=== PATIENT | male | born 1955 | race African-American/Black ===

== ENCOUNTER 2017-04-08 08:00 | Day surgery (SDC) | payer BC ==
--- NOTE | ~2017-04-08 | EGD ---
EGD REPORT [facility] [address] [place] [place] [address] NAME: VOLODYMYR MARTINEZ : [birth year] STATUS : REG [facility]C PAT#: [id number] AGE: 61 ADM/REG DATE : 04/08/17 MR#: [id number] REPORT SERV DATE: 04/08/17 DICTATED BY: IRVING REYES DATE: 04/08/17 REPORT STATUS : Draft [facility]ANS[facility]IBED BY: [facility] DATE: 04/08/17 Endoscopy Center Patient Name: Volodymyr Martinez Date of : 1955 Attending MD: NOEL REYES MD Procedure Date No Time: 04/08/2017 Procedure: Upper GI endoscopy Indications: Epigastric abdominal pain, Abdominal bloating, Has a lap band and fluid has been aspirated howe to epigastric pain Referring MD: MARIANNA GRULLON Medicines: See the Anesthesia note for documentation of the administered medications Complications: No immediate complications. Estimated blood loss: None. Procedure: Pre-Anesthesia Assessment: - ASA Grade Assessment: III - A patient with severe systemic disease. - Prior to the procedure, a History and Physical was performed, and patient medications and allergies were reviewed. The patient's tolerance of previous anesthesia was also reviewed. The risks and benefits of the procedure and the sedation options and risks were discussed with the patient. All questions were answered, and informed consent was obtained. Prior Anticoagulants: The patient has taken aspirin and Plavix (clopidogrel), last doses were 1 day prior to procedure. After reviewing the risks and benefits, the patient was deemed in satisfactory condition to undergo the procedure. After obtaining informed consent, the endoscope was passed under direct vision. Throughout the procedure, the patient's blood pressure, pulse, and oxygen saturations were monitored continuously. The GIF [id number] [id number] was introduced through the mouth, and advanced to the second part of duodenum. The upper GI endoscopy was accomplished without difficulty. The patient tolerated the procedure well. Findings: The examined duodenum was normal. The entire examined stomach was normal. Biopsies were taken with a cold forceps for histology. Lap band, site appears healthy The examined esophagus was normal. Impression: - Normal examined duodenum. - Normal stomach. Biopsied. EGD REPORT [address] [address] NAME: VOLODYMYR MARTINEZ : [birth year] STATUS : REG [facility] [place] PAT#: [id number] AGE: 61 ADM/REG DATE : 04/08/17 MR#: [id number] REPORT SERV DATE: 04/08/17 DICTATED BY: IRVING REYES DATE: 04/08/17 REPORT STATUS : Draft TRANSCRIBED BY: [employer] DATE: 04/08/17 - Lap band, site appears healthy - Normal esophagus. Recommendation: - Patient has a contact number available for emergencies. The signs and symptoms of potential delayed complications were discussed with the patient. Return to normal activities tomorrow. Written discharge instructions were provided to the patient. - Regular diet. - Discharge patient to home. - Continue present medications. - Await pathology results. - Discharge patient to home. Procedure Code(s): --- Professional --- 68546, Esophagogastroduodenoscopy, flexible, transoral; with biopsy, single or multiple Diagnosis Code(s): --- Professional --- R10.13, Epigastric pain R14.0, Abdominal distension (gaseous) CPT copyright 2013 [employer]. All rights reserved. The codes documented in this report are preliminary and upon welder tack review may be revised to meet current compliance requirements. NOEL REYES MD 04/08/2017 9:03 AM This report has been signed electronically. Number of Addenda: 0 Note Initiated On: 04/08/2017 8:44 AM Scope Withdrawal Time 0 hours 0 minutes 0 seconds [id number] [id number]
--- NOTE | ~2017-04-08 | EGD ---
EGD REPORT [facility] [address] [place] [place] [address] NAME: VOLODYMYR MARTINEZ : [birth year] STATUS : REG [facility]C PAT#: [id number] AGE: 61 ADM/REG DATE : 04/08/17 MR#: [id number] REPORT SERV DATE: 04/08/17 DICTATED BY: IRVING REYES DATE: 04/08/17 REPORT STATUS : Draft TRANSCRIBED BY: [facility] DATE: 04/08/17 Endoscopy Center Patient Name: Volodymyr Martinez Date of : 1955 Attending MD: NOEL REYES MD Procedure Date No Time: 04/08/2017 Procedure: Colonoscopy Indications: Screening for colorectal malignant neoplasm Referring MD: MARIANNA GRULLON Medicines: See the Anesthesia note for documentation of the administered medications Complications: No immediate complications. Estimated blood loss: None. Procedure: Pre-Anesthesia Assessment: - ASA Grade Assessment: III - A patient with severe systemic disease. - Prior to the procedure, a History and Physical was performed, and patient medications and allergies were reviewed. The patient's tolerance of previous anesthesia was also reviewed. The risks and benefits of the procedure and the sedation options and risks were discussed with the patient. All questions were answered, and informed consent was obtained. Prior Anticoagulants: The patient has taken aspirin and Plavix (clopidogrel), last doses were 1 day prior to procedure. After reviewing the risks and benefits, the patient was deemed in satisfactory condition to undergo the procedure. After I obtained informed consent, the scope was passed under direct vision. Throughout the procedure, the patient's blood pressure, pulse, and oxygen saturations were monitored continuously. The PCF [id number] was introduced through the anus and advanced to the cecum, identified by appendiceal orifice and ileocecal valve. The ileocecal valve, appendiceal orifice and rectum were photographed. The entire colon was examined. The colonoscopy was performed without difficulty. The patient tolerated the procedure well. The quality of the bowel preparation was adequate. Findings: The perianal and digital rectal examinations were normal. A sessile polyp was found in the distal descending colon. The polyp was diminutive in size. The polyp was removed with a cold biopsy forceps. Resection and retrieval were complete. Non-bleeding internal hemorrhoids were found during retroflexion and were Grade I (internal hemorrhoids that do not prolapse). EGD REPORT [place] [id number] [facility] [place]. [address] NAME: VOLODYMYR MARTINEZ : [birth year] STATUS : REG [facility]#: [id number] AGE: 61 ADM/REG DATE : 04/08/17 MR#: [id number] REPORT SERV DATE: 04/08/17 DICTATED BY: IRVING REYES DATE: 04/08/17 REPORT STATUS : Draft TRANSCRIBED BY: [facility] DATE: 04/08/17 No other significant abnormalities were identified in a careful examination of the remainder of the colon. Impression: - One diminutive polyp in the distal descending colon. Resected and retrieved. - Non-bleeding internal hemorrhoids. Recommendation: - Patient has a contact number available for emergencies. The signs and symptoms of potential delayed complications were discussed with the patient. Return to normal activities tomorrow. Written discharge instructions were provided to the patient. - Regular diet. - Discharge patient to home. - Continue present medications. - Await pathology results. - Repeat colonoscopy in 5-10 years for surveillance based on pathology results. Procedure Code(s): --- Professional --- 31399, Colonoscopy, flexible, proximal to splenic flexure; with biopsy, single or multiple Diagnosis Code(s): --- Professional --- D12.4, Benign neoplasm of descending colon K64.0, First degree hemorrhoids Z12.11, Encounter for screening for malignant neoplasm of colon CPT copyright 2013 [employer]. All rights reserved. The codes documented in this report are preliminary and upon final inspection supervisor review may be revised to meet current compliance requirements. NOEL REYES MD 04/08/2017 9:23 AM This report has been signed electronically. Number of Addenda: 0 Note Initiated On: 04/08/2017 8:44 AM Scope Withdrawal Time 0 hours 8 minutes 49 seconds [id number] [place] [id number]
[~2017-04-08 08:00] MED LIST: COREG12 PO; CRESTOR20 MG PO; DEMA20 PO; FENOGLIDE120 MG PO; FORTAMET1000 MG PO; KLOR-CON M2020 MEQ PO; LOTREL1 CA4 PO; PLAVIX PO; ZETIA PO; [UNRECOGNIZED DRUG - OTHER]
== END 2017-04-08 23:59 | disposition home or self-care (01) ==
LOC: DMU 08:00
PROVIDERS: Internal Medicine Gastroenterology
PROC: 0DBM8ZX Excision of Descending Colon, Via Natural or Artificial Opening Endoscopic, Diagnostic (ICD-10-PCS; principal; 2017-04-08 09:00)
PROC: 0DB68ZX Excision of Stomach, Via Natural or Artificial Opening Endoscopic, Diagnostic (ICD-10-PCS; 2017-04-08 09:00)
DX: Z12.11 Encounter for screening for malignant neoplasm of colon (principal); K29.50 Unspecified chronic gastritis without bleeding; K64.0 First degree hemorrhoids; R14.0 Abdominal distension (gaseous); I10 Essential (primary) hypertension; G47.33 Obstructive sleep apnea (adult) (pediatric); E11.9 Type 2 diabetes mellitus without complications; Z95.1 Presence of aortocoronary bypass graft; Z79.899 Other long term (current) drug therapy
CPT/HCPCS: 82962; 88305